=== PATIENT | male | born 1935 | race American Indian/Alaskan Native ===

== ENCOUNTER 2017-07-29 09:35 | Outpatient (CLI) | payer MEDICARE ==
--- NOTE | 2017-07-30 14:31 | Cat Scan Report ---
CT of the abdomen and pelvis without contrast. History: Abdominal aortic aneurysm. Findings: Comparison is made to the most recent study performed on February 02, 2016. Bibasilar pleural-parenchymal changes including a left pleural-based nodule are stable.. The liver and spleen are unremarkable except for a few granulomas splenic calcifications. There are multiple calcified gallstones. The pancreas is unremarkable. Bilateral renal cysts are stable. There is an abdominal aortic aneurysm with aortoiliac endograft in place. The maximum diameter of the aneurysmal sac measures 8.2 cm which is increased from 7.4 cm on the previous study. 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 Mild aneurysmal dilatation of the left common iliac artery is also stable. Impression: 1. Mild increase in diameter of abdominal aortic aneurysm now measuring 8.2 cm compared to 7.4 cm on the previous study. Endogastric stent graft is noted. 2. 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 Cholelithiasis. 4. Bilateral renal cysts. #5. Stable bibasilar pleural-parenchymal changes.
== END 2017-07-29 09:36 | disposition home or self-care (01) ==
LOC: CT 09:35
PROVIDERS: ATTEND Surgery Vascular Surgery
DX: I71.4 Abdominal aortic aneurysm, without rupture (principal); K80.20 Calculus of gallbladder without cholecystitis without obstruction; D73.89 Other diseases of spleen; N28.1 Cyst of kidney, acquired; I12.0 Hypertensive chronic kidney disease with stage 5 chronic kidney disease or end stage renal disease; N18.6 End stage renal disease; D63.1 Anemia in chronic kidney disease; I25.10 Atherosclerotic heart disease of native coronary artery without angina pectoris; E78.00 Pure hypercholesterolemia, unspecified; J44.9 Chronic obstructive pulmonary disease, unspecified; F17.200 Nicotine dependence, unspecified, uncomplicated
CPT/HCPCS: 74176

== ENCOUNTER 2018-01-08 06:37 | Day surgery (SDC) | payer MEDICARE ==
[~2018-01-08 06:37] MED LIST: ANCEF/STERILE WATER 2 GM/20 ML 2 GM/20 ML SYRINGE IV NR; NACL 0.9% 1000 ML 1,000 ML IV SCH
[2018-01-08 07:37] LABS: Basophils % (Auto) 0.4 % (0.0-1.8); Eosinophils # (Auto) 0.2 K/mm3 (0.0-0.4); Eosinophils % (Auto) 2.9 % (0.0-4.3); Hematocrit 29.6 % (35.5-45.6); Hemoglobin 9.8 gm/dl (11.8-15.2); Lymphocytes # (Auto) 1.7 K/mm3 (1.2-5.4); Lymphocytes % (Auto) 32.6 % (13.4-35.0); Mean Corpuscular HGB Conc 33 % (32-34); Mean Corpuscular Hemoglobin 37 pg (28-32); Mean Corpuscular Volume 111 fl (84-94); Monocytes # (Auto) 0.7 K/mm3 (0.0-0.8); Monocytes % (Auto) 12.5 % (0.0-7.3); Platelet Count 122 K/mm3 (140-440); Red Blood Count 2.66 M/mm3 (3.65-5.03); Red Cell Distribution Width 16.1 % (13.2-15.2)
[2018-01-08 07:49] LABS: Calcium 8.8 mg/dL (8.4-10.2)
[2018-01-08 07:50] LABS: INR 1.06 (0.87-1.13); Partial Thromboplastin Time 31.2 Sec. (24.2-36.6)
[2018-01-08] MEDS ORDERED: HEPARIN/NS 5000 UNIT/500ML(CATH LAB) 1,000 ML IR ONE (08:37)
[2018-01-08] MEDS ORDERED: XYLOCAINE 2% INFILTRATI ONE (08:38)
[2018-01-08] MEDS ORDERED: NACL 0.9% 500 ML 500 ML ONE (08:39)
[2018-01-08] MEDS ORDERED: ANCEF/STERILE WATER 2 GM/20 ML 2 GM/20 ML SYRINGE IV ONE (08:51)
[2018-01-08] MEDS: SUBLIMAZE ONE ×4 (09:10→10:56)
[2018-01-08] MEDS: VERSED ONE ×4 (09:10→10:56)
[2018-01-08] MEDS: HEPARIN 10,000 UNITS/10 ML ONE ×2 (09:28→10:15)
--- NOTE | 2018-01-08 11:34 | Short Stay Summary ---
Short Stay Documentation Date of service: 01/08/18 Narrative H&P: 82 year old male with AAA s/p repair x 3 with endoleak. - History Principal diagnosis: Endoleak H&P: obtained from office - Allergies and Medications Current Medications: Allergies No Known Allergies Allergy (Verified 04/18/16 11:13) Home Medications Medication Instructions Recorded Confirmed Last Taken Type Atorvastatin [Lipitor] 80 mg PO HS 02/28/14 01/08/18 01/07/18 History B Complex 11/Folic/C/Biot/Zinc 1 tab PO DAILY 02/28/14 01/08/18 01/07/18 History [Dialyvite with Zinc Tablet] Tamsulosin HCl 0.4 mg PO DAILY 02/28/14 01/08/18 01/07/18 History Travoprost [Travatan Z] 1 drops OU QHS 09/12/14 01/08/18 01/07/18 History Clopidogrel [Plavix] 75 mg PO QDAY #30 tablet 03/13/16 01/08/18 01/08/18 04:00 Rx Tiotropium [place] [Spiriva 2 puff INHALATION DAILY 08/18/17 01/08/18 01/07/18 History Respimat] Active Medications Cefazolin Sodium (Ancef/Sterile Water 2 Gm/20 Ml) 2 gm in 20 mls @ 80 mls/hr IV PREOP NR PRN Reason: Protocol Stop: 01/08/18 23:59 Sodium Chloride (Nacl 0.9% 1000 Ml) 1,000 mls @ 42 mls/hr IV DIRECT ALEJANDRA - Physical exam General appearance: no acute distress Lungs: Normal air movement Gastrointestinal: normal - Brief post op/procedure progress note Date of procedure: 01/08/18 Pre-op diagnosis: Endoleak Post-op diagnosis: same Procedure: Angioplasty of fistula Aortography Right renal artery angiography SMA angiography Anesthesia: local (w/ conscious sedation) Surgeon: DELTA SANDERS Estimated blood loss: minimal Condition: stable - Hospital course Hospital course: Ready for discharge in 1 hr - Disposition Condition at discharge: Stable Disposition: DC-01 TO HOME OR SELFCARE Short Stay Discharge Plan Activity: advance as tolerated Weight Bearing Status: Weight Bear as Tolerated Diet: renal Wound: keep clean and dry Follow up with: CHRISTINA KEATING MD [Other] - 7 Days
--- NOTE | 2018-01-08 11:41 | Operative Report ---
Operative Report Operative Report: EXAM: 1. Ultrasound-guided access of the left arm brachial axillary AV graft 2. Fistulogram 3. Angioplasty of the arterial anastomosis with a 6 mm x 40 mm angioplasty balloon 4. Selection of the abdominal aorta with aortography in multiple projections 5. Selection of the right renal artery stent with angiography of the right kidney 6. Selection of the SMA with angiography of the SMA DATE: 01/08/18 FOREST LOGISTICS MANAGER: DELTA SANDERS MD INDICATION: 82-year-old male with abdominal aortic aneurysm with attempted endovascular repair 3 with end-stage renal disease with endo-leak. MEDICATIONS: Please see nursing report for full details. DEVICES: 6 mm 40 mm angioplasty balloon CONTRAST: Please see Blending Tank Helper report for full details. PROCEDURE: The risks, benefits, and alternatives were discussed with the patient and his ; written informed consent was obtained. The left arm brachial axillary graft was evaluated. I initially thought this was a axillary axillary graft due to the large hypertrophied axillary and brachial artery, but on ultrasound this was a brachial axillary graft. At the arterial anastomosis there was severe narrowing. I did not evaluate the venous anastomosis. Under direct ultrasound guidance, I accessed the left brachial axillary graft in a retrograde direction. 0.018 inch wire was passed through the 21-gauge micropuncture needle. Needle was exchanged for a transitional dilator. Wire was exchanged for 0.035 inch Glidewire which was used to cannulate the brachial artery in a retrograde direction. Transitional dilator was exchanged for a short 6 [place] sheath. Angled catheter was advanced over the Glidewire into the brachial artery and digital subtraction angiography was performed. Digital subtraction angiography demonstrated severe 90% narrowing of the arterial anastomosis and 80% narrowing of the venous anastomosis. The graft itself was patent. The brachial artery and axillary artery were patent. 6 mm x 4 cm angioplasty balloon was advanced over the wire and used to perform angioplasty at the arterial anastomosis. This was then exchanged for angled catheter digital subtraction angiography was performed demonstrating 10% residual narrowing at the arterial anastomosis. The patient was then heparinized with 5000 units of heparin. Angled catheter was advanced over the Glidewire which was used to select the thoracic aorta. Wire was then exchanged for Glidewire advantage and the sheath was then exchanged for a 6 [place] 65 cm sheath, which was not long enough, and then for a 6 [place] 90 cm sheath. This was passed into the abdominal aorta. I palpated the graft which still had a thrill within it with the sheath past the arterial anastomosis. Pigtail catheter was then advanced through the sheath and 25 for 50 power injections were performed in the AP and lateral projections. Patient's respirations partially limited visualization, but there was no large endoleaks. There is a very small possible 1A endoleak which was better visualized on the CT scan. The celiac and SMA filled with contrast, and the right renal artery filled with contrast. I selected the right renal artery stent and digital subtraction angiography was performed which demonstrated patency of the right renal artery stent with normal tapering from the stent to the right renal artery. The right renal artery was patent. I selected the SMA and dizziness of traction angiography was performed which demonstrated less than 50% narrowing within the proximal SMA secondary to atherosclerotic disease. Multiple wires and catheters were used to attempt to select the small endoleak. This was done in conjunction with a microcatheter and microwire. I was able to selected the leak towards the end of the case, but I could not pass wire more than a few centimeters into the leak. Given the length of the case, I decided to end the case at this time as treating the leak would require additional time which I did not have given the fluoroscopy time. All wires, catheters, and sheaths were removed. The site was closed with 3-0 Vicryl and pressure. Pressure was held until hemostasis was achieved. FINDINGS: Please see procedure note above. IMPRESSION: 1. Successful fistulogram with angioplasty of the arterial anastomosis. 2. Successful abdominal aortography. 3. Successful selection of the SMA and right renal artery with visceral angiography and right renal angiography 4. Multiple attempts were made to select the endoleak which are only partially successful towards the end of the case. The patient will be brought back to clinic to reassess the patient, and another attempt will be performed.
[2018-01-08 13:58] VITALS: BP 144/77
== END 2018-01-08 13:25 | disposition home or self-care (01) ==
LOC: CATHLABREC 06:37
PROVIDERS: ATTEND Radiology Diagnostic Radiology
DX: T82.898A Other specified complication of vascular prosthetic devices, implants and grafts, initial encounter (principal); I12.0 Hypertensive chronic kidney disease with stage 5 chronic kidney disease or end stage renal disease; I71.4 Abdominal aortic aneurysm, without rupture; E78.00 Pure hypercholesterolemia, unspecified; Z79.899 Other long term (current) drug therapy; Y83.2 Surgical operation with anastomosis, bypass or graft as the cause of abnormal reaction of the patient, or of later complication, without mention of misadventure at the time of the procedure
CPT/HCPCS: 36245; 36415; 36902; 75726; 80048; 85025; 85610; 85730; C1725; C1751; C1769; C1887; C1894; J0690; J1644; J2250; J3010; J7040; Q9967

== ENCOUNTER 2018-01-29 06:07 | Day surgery (SDC) | payer MEDICARE ==
[2018-01-29 07:12] LABS: Basophils % (Auto) 0.5 % (0.0-1.8); Eosinophils # (Auto) 0.1 K/mm3 (0.0-0.4); Eosinophils % (Auto) 2.5 % (0.0-4.3); Hematocrit 29.1 % (35.5-45.6); Hemoglobin 9.5 gm/dl (11.8-15.2); Lymphocytes # (Auto) 1.5 K/mm3 (1.2-5.4); Lymphocytes % (Auto) 31.3 % (13.4-35.0); Mean Corpuscular HGB Conc 33 % (32-34); Mean Corpuscular Hemoglobin 36 pg (28-32); Mean Corpuscular Volume 111 fl (84-94); Monocytes # (Auto) 0.6 K/mm3 (0.0-0.8); Monocytes % (Auto) 13.3 % (0.0-7.3); Platelet Count 110 K/mm3 (140-440); Red Blood Count 2.63 M/mm3 (3.65-5.03); Red Cell Distribution Width 16.1 % (13.2-15.2)
[2018-01-29 07:24] LABS: INR 1.05 (0.87-1.13)
[2018-01-29 07:25] LABS: Partial Thromboplastin Time 30.4 Sec. (24.2-36.6)
[2018-01-29 07:37] LABS: Calcium 8.7 mg/dL (8.4-10.2)
[2018-01-29] MEDS ORDERED: HEPARIN/NS 5000 UNIT/500ML(CATH LAB) 1,000 ML IR ONE (10:33)
[2018-01-29] MEDS ORDERED: XYLOCAINE 2% INFILTRATI ONE (10:33)
[2018-01-29] MEDS ORDERED: ANCEF/STERILE WATER 2 GM/20 ML 2 GM/20 ML SYRINGE IV ONE (10:33)
[2018-01-29] MEDS: SUBLIMAZE ONE ×9 (10:51→12:38)
[2018-01-29] MEDS: VERSED ONE ×7 (10:51→12:38)
[2018-01-29] MEDS: HEPARIN 10,000 UNITS/10 ML ONE ×3 (11:03→11:45)
--- NOTE | 2018-01-29 12:56 | Short Stay Summary ---
Short Stay Documentation Date of service: 01/29/18 Narrative H&P: 82 year old man with endoleak who presents for treatment. - History H&P: obtained from office - Allergies and Medications Current Medications: Allergies No Known Allergies Allergy (Verified 04/18/16 11:13) Home Medications Medication Instructions Recorded Confirmed Last Taken Type Atorvastatin [Lipitor] 80 mg PO HS 02/28/14 01/29/18 01/28/18 History B Complex 11/Folic/C/Biot/Zinc 1 tab PO DAILY 02/28/14 01/29/18 01/28/18 History [Dialyvite with Zinc Tablet] Tamsulosin HCl 0.4 mg PO DAILY 02/28/14 01/29/18 01/28/18 History Travoprost [Travatan Z] 1 drops OU QHS 09/12/14 01/29/18 01/28/18 History Clopidogrel [Plavix] 75 mg PO QDAY #30 tablet 03/13/16 01/29/18 01/28/18 Rx Tiotropium [place] [Spiriva 2 puff INHALATION DAILY 08/18/17 01/29/18 01/28/18 History Respimat] Active Medications Cefazolin Sodium (Ancef/Sterile Water 2 Gm/20 Ml) 2 gm in 20 mls @ 80 mls/hr IV PREOP NR; Protocol Stop: 01/29/18 23:00 Sodium Chloride (Nacl 0.9% 1000 Ml) 1,000 mls @ 42 mls/hr IV DIRECT ALEJANDRA - Physical exam General appearance: no acute distress Lungs: Normal air movement Gastrointestinal: normal Extremities: normal temperature, normal color - Brief post op/procedure progress note Date of procedure: 01/29/18 Pre-op diagnosis: endoleak and fistula malfunction Post-op diagnosis: same Procedure: attempted endoleak coiling and fistulogram with fistuloplasty Anesthesia: local (w/ conscious sedation) Surgeon: DELTA SANDERS Estimated blood loss: minimal Condition: stable - Hospital course Hospital course: Tolerated procedure well. No issues. - Disposition Condition at discharge: Stable Disposition: DC-01 TO HOME OR SELFCARE - Discharge Diagnoses (1) AAA (abdominal aortic aneurysm) Status: Chronic (2) End stage kidney disease Status: Resolved Short Stay Discharge Plan Activity: advance as tolerated Weight Bearing Status: Weight Bear as Tolerated Diet: renal Wound: keep clean and dry
--- NOTE | 2018-01-29 12:58 | Operative Report ---
Operative Report Operative Report: EXAM: 1. Ultrasound-guided access of the left arm brachial axillary AV graft towards the arterial anastamosis 2. Fistulogram 3. Angioplasty of the arterial anastomosis with a 6 mm x 40 mm angioplasty balloon 4. Selection of the abdominal aorta with aortography in multiple projections 5. Selection of the right renal artery stent with angiography of the right kidney 6. Selection of the SMA with angiography of the SMA 7. Ultrasound guided access of the left arm brachial axillary AV graft towards the venous anastamosis 8. Angioplasty of the venous anastomosis with an 8 mm angioplasty balloon DATE: 01/29/18 CONVEYOR CONSOLE OPERATOR: DELTA SANDERS MD INDICATION: 82-year-old male with abdominal aortic aneurysm with attempted endovascular repair 3 with end-stage renal disease with endo-leak. MEDICATIONS: Please see nursing report for full details. DEVICES: 6 mm 40 mm angioplasty balloon 8 mm angioplasty balloon CONTRAST: Please see Bottom Brusher report for full details. PROCEDURE: The risks, benefits, and alternatives were discussed with the patient and his ; written informed consent was obtained. The left arm brachial axillary graft was evaluated. At the arterial anastomosis there was mild narrowing. Graft was patent. Under direct ultrasound guidance, I accessed the left brachial axillary graft in a retrograde direction. 0.018 inch wire was passed through the 21-gauge micropuncture needle. Needle was exchanged for a transitional dilator. Wire was exchanged for 0.035 inch Glidewire which was used to cannulate the brachial artery in a retrograde direction. Transitional dilator was exchanged for a short 6 Congolese sheath. Angled catheter was advanced over the Glidewire into the brachial artery and digital subtraction angiography was performed. Digital subtraction angiography demonstrated mild 30% narrowing of the arterial anastomosis and 80% narrowing of the venous anastomosis. The graft itself was patent. The brachial artery and axillary artery were patent. I decided to treat the arterial anastomosis in order to prevent occlusion of the graft during the retrograde procedure through the graft. 6 mm x 4 cm angioplasty balloon was advanced over the wire and used to perform angioplasty at the arterial anastomosis. This was then exchanged for angled catheter digital subtraction angiography was performed demonstrating 10% residual narrowing at the arterial anastomosis. The patient was then heparinized with heparin. Angled catheter was advanced over the Glidewire which was used to select the thoracic aorta. Wire was then exchanged for Glidewire advantage and the sheath was then exchanged for a 6 [place] 90 cm sheath. This was passed into the abdominal aorta. I palpated the graft which still had a thrill within it with the sheath past the arterial anastomosis. Pigtail catheter was then advanced through the sheath and power injections were performed in the AP and lateral projections. Patient's respirations partially limited visualization, but, again, there was no large endoleaks. Although difficult to visualize, there is the possiblity of a very small possible 1A endoleak which was better visualized on the CT scan. The celiac and SMA filled with contrast, and the right renal artery filled with contrast. I selected the right renal artery stent and digital subtraction angiography was performed which demonstrated patency of the right renal artery stent with normal tapering from the stent to the right renal artery. The right renal artery was patent. I selected the SMA and digital subtraction angiography was performed which demonstrated less than 50% narrowing within the proximal SMA secondary to atherosclerotic disease. Similar to the last case, multiple wires and catheters were used to attempt to select the small endoleak. This was done in conjunction with a microcatheter and microwire. I was able to select the gutter on the right side of the renal stent, but the gutter did not communicate with the possible endoleak. I was able to select the gutter on the left side of the renal stent, but the wires and microcatheters prolapsed into the SMA ostium preventing advancement of a microcatheter into the left sided renal gutter. Given the length of the case, I decided to end the case and reconsider treatment with plan for eye of the tiger technique to eliminate the gutters instead of coiling the gutters. All wires and catheters were retracted into the sheath of the sheath was exchanged for 6 Congolese standard sheath. Then used ultrasound access the graft with the wire passing towards the venous anastomosis. The needle was exchanged for transitional dilator. 0.01 inch wire was exchanged for 0.035 inch wire. Transitional dilator was changed for 6 Cong[place]ese sheath. Digital subtraction angiography was performed again demonstrating a severe venous anastomotic narrowing. No central venous narrowing. 8 mm angioplasty balloon was advanced over the wire used to perform high pressure angioplasty for prolonged period of time of the venous anastomosis. Digital subtraction angiography was repeated demonstrating 10% residual narrowing at the venous anastomosis. At this point, all wires, catheters, and she saw removed and the sites were closed with 3-0 Vicryl suture. FINDINGS: Please see procedure note above. IMPRESSION: 1. Successful fistulogram with angioplasty of the arterial anastomosis and venous anastomosis. 2. Successful abdominal aortography. 3. Successful selection of the SMA and right renal artery with visceral angiography and right renal angiography
[2018-01-29 13:55] VITALS: BP 152/68
== END 2018-01-29 13:40 | disposition home or self-care (01) ==
LOC: CATHLABREC 06:07
PROVIDERS: ATTEND Radiology Diagnostic Radiology
DX: I71.6 Thoracoabdominal aortic aneurysm, without rupture (principal); T82.530A Leakage of surgically created arteriovenous fistula, initial encounter; I12.0 Hypertensive chronic kidney disease with stage 5 chronic kidney disease or end stage renal disease; N18.6 End stage renal disease; E78.00 Pure hypercholesterolemia, unspecified; I65.23 Occlusion and stenosis of bilateral carotid arteries; Z98.890 Other specified postprocedural states; Y83.2 Surgical operation with anastomosis, bypass or graft as the cause of abnormal reaction of the patient, or of later complication, without mention of misadventure at the time of the procedure
CPT/HCPCS: 36415; 36902; 80048; 85025; 85610; 85730; C1725; C1769; C1887; C1894; J0690; J1644; J2250; J3010; J7030; Q9967

== ENCOUNTER 2019-09-14 07:33 | Day surgery (SDC) | payer MEDICARE ==
[2019-09-14] MEDS ORDERED: ECOTRIN PO ONE (07:59)
[2019-09-14] MEDS ORDERED: NACL 0.9% 500 ML 500 ML IV SCH (08:00)
[2019-09-14 08:50] LABS: Basophils % (Auto) 0.8 % (0.0-1.8); Eosinophils # (Auto) 0.1 K/mm3 (0.0-0.4); Eosinophils % (Auto) 1.5 % (0.0-4.3); Hematocrit 20.5 % (35.5-45.6); Hemoglobin 7.1 gm/dl (11.8-15.2); Lymphocytes # (Auto) 1.3 K/mm3 (1.2-5.4); Mean Corpuscular HGB Conc 35 % (32-34); Mean Corpuscular Volume 104 fl (84-94); Monocytes # (Auto) 0.6 K/mm3 (0.0-0.8); Monocytes % (Auto) 10.5 % (0.0-7.3); Platelet Count 111 K/mm3 (140-440); Red Blood Count 1.98 M/mm3 (3.65-5.03)
[2019-09-14 08:51] LABS: Red Cell Distribution Width 20.9 % (13.2-15.2)
[2019-09-14 08:57] LABS: Calcium 8.3 mg/dL (8.4-10.2)
[2019-09-14 08:59] LABS: INR 1.24 (0.87-1.13); Partial Thromboplastin Time 27.6 Sec. (24.2-36.6)
[2019-09-14] MEDS ORDERED: HEPARIN/NS 5000 UNIT/500ML(CATH LAB) 1,000 ML IR ONE (09:05)
[2019-09-14] MEDS ORDERED: HEPARIN 10,000 UNITS/10 ML ONE (09:05)
[2019-09-14] MEDS ORDERED: XYLOCAINE 2% INFILTRATI ONE (09:06)
[2019-09-14] MEDS ORDERED: CALAN ONE (09:06)
[2019-09-14] MEDS ORDERED: NITROGLYCERIN SYRINGE 3 ML ONE (09:06)
[2019-09-14] MEDS ORDERED: VERSED ONE (09:07)
[2019-09-14] MEDS ORDERED: SUBLIMAZE ONE (09:07)
--- NOTE | 2019-09-14 10:17 | Short Stay Summary ---
Short Stay Documentation Date of service: 09/14/19 - History H&P: obtained from office - Allergies and Medications Current Medications: Allergies No Known Allergies Allergy (Verified 04/18/16 11:13) Home Medications Medication Instructions Recorded Confirmed Last Taken Type Atorvastatin [Lipitor] 80 mg PO HS 02/28/14 09/14/19 09/13/19 History B Complex 11/Folic/C/Biot/Zinc 1 tab PO DAILY 02/28/14 09/14/19 09/13/19 History [Dialyvite with Zinc Tablet] Travoprost [Travatan Z] 1 drops OU QHS 09/12/14 09/14/19 09/13/19 History Tiotropium [place] [Spiriva 2 puff INHALATION DAILY 08/18/17 09/14/19 09/14/19 History Respimat] Ferrous Sulfate [Iron 325 MG] 325 mg PO DAILY 09/14/19 09/14/19 09/13/19 History Megestrol [Megace] 40 mg PO DAILY 09/14/19 09/14/19 09/13/19 History Metoprolol [Lopressor TAB] 25 mg PO BID 09/14/19 09/14/19 09/14/19 History Active Medications Sodium Chloride (Nacl 0.9% 500 Ml) 500 mls @ 50 mls/hr IV DIRECT ALEJANDRA Stop: 09/14/19 17:59 Last Admin: 09/14/19 09:06 Dose: 50 mls/hr Documented by: - Brief post op/procedure progress note Date of procedure: 09/14/19 Pre-op diagnosis: abnl stress Post-op diagnosis: other Procedure: see report Anesthesia: local Estimated blood loss: none Pathology: none - Disposition Condition at discharge: Good Disposition: DC-01 TO HOME OR SELFCARE - Discharge Diagnoses (1) Anemia Status: Acute Qualifiers: Anemia type: due to chronic kidney disease Chronic kidney disease stage: on chronic dialysis Qualified Code(s): N18.6 - End stage renal disease; D63.1 - Anemia in chronic kidney disease; Z99.2 - Dependence on renal dialysis (2) Hyperlipemia, mixed Status: Chronic (3) Neutropenia Status: Chronic Qualifiers: Neutropenia type: unspecified Qualified Code(s): D70.9 - Neutropenia, unspecified (4) COPD (chronic obstructive pulmonary disease) Status: Chronic Qualifiers: Emphysema type: unspecified (5) Hypertensive CKD, ESRD on dialysis Status: Chronic (6) AAA (abdominal aortic aneurysm) Status: Chronic Qualifiers: Presence of rupture: without rupture Qualified Code(s): I71.4 - Abdominal aortic aneurysm, without rupture (7) CAD (coronary artery disease) Status: Chronic Qualifiers: Coronary Disease-Associated Artery/Lesion type: pala artery [place] vs. transplanted heart: pala heart Associated angina: without angina Qualified Code(s): I25.10 - Atherosclerotic heart disease of pala coronary artery without angina pectoris Short Stay Discharge Plan Activity: advance as tolerated Diet: low fat, low cholesterol Wound: keep clean and dry Follow up with: SESAR COLVIN PA [Primary Care Provider] - 7 Days
--- NOTE | 2019-09-14 11:06 | Cardiac Catherization Report ---
LEFT HEART CATHETERIZATION CLINICAL INFORMATION: An 83-year-old gentleman with extensive abdominal aorta and thoracic aneurysm with stenting is going for a repeat surgery by [facility], had a preoperative evaluation shows mild LV dysfunction with mild fixed defects, here for left heart catheterization preoperatively. The patient has history of end-stage renal disease, on hemodialysis, neutropenia, chronic anemia, hyperlipidemia. The patient is on beta vero therapy. Procedure was done, moderate sedation. Total sedation time was 17 minutes, started 9:43 a.m., finished at 10:01 a.m. Procedure was performed via the right radial artery, sterile technique, local anesthesia, 6-[place] radial sheath inserted. PROCEDURE FINDINGS: Left system engaged JL4 catheter, left main is large and patent with mild luminal irregularities, bifurcates into large LAD that is patent with mild luminal irregularities. Diagonal 1 is a small caliber vessel that is patent with mild luminal irregularities. Diagonal 2 is [id number] caliber vessel, patent with mild luminal irregularities. Circumflex is a medium caliber vessel, proximal 30-40% focal lesion and goes into a medium caliber OM1 that is patent with mild luminal irregularities. RCA engaged with a JR4 catheter, large dominant vessel is patent with mild luminal irregularities, bifurcates medium caliber PDA, PLV are patent with mild luminal irregularities. LV gram done in ROHINI and SCHMITT shows borderline normal LV function, EF 50-55%, LVEDP of 25 mmHg, LV is 158. Aortic is 156/54 mmHg. No gradient across the aortic valve on pullback. SUMMARY: Left main patent, LAD patent, mild luminal irregularities. Diagonal 1, diagonal 2 patent with mild luminal irregularities. Circumflex proximal 30-40%, OM1 patent with mild luminal irregularities. RCA is large, dominant, patent with mild luminal irregularities. Borderline normal LV function, EF 50-55%. Discussed the details with the patient and the patient's family. JOB# [id number] MONICA/RAZA
[2019-09-14 12:51] VITALS: BP 121/60
== END 2019-09-14 13:30 | disposition home or self-care (01) ==
LOC: CATHLABREC 07:33
PROVIDERS: ATTEND Internal Medicine
DX: I71.6 Thoracoabdominal aortic aneurysm, without rupture (principal); I42.0 Dilated cardiomyopathy; E78.2 Mixed hyperlipidemia; I12.0 Hypertensive chronic kidney disease with stage 5 chronic kidney disease or end stage renal disease; N18.6 End stage renal disease; D50.0 Iron deficiency anemia secondary to blood loss (chronic); J44.9 Chronic obstructive pulmonary disease, unspecified; I25.10 Atherosclerotic heart disease of native coronary artery without angina pectoris; H40.9 Unspecified glaucoma; G62.9 Polyneuropathy, unspecified; M19.90 Unspecified osteoarthritis, unspecified site; Z99.2 Dependence on renal dialysis; Z79.899 Other long term (current) drug therapy; Z87.891 Personal history of nicotine dependence; Z98.890 Other specified postprocedural states; Z82.49 Family history of ischemic heart disease and other diseases of the circulatory system
CPT/HCPCS: 36415; 80048; 85025; 85610; 85730; 93005; 93010; 93458; 99156; C1894; J1644; J2250; J3010; J7040; Q9967